=== PATIENT | male | born 1985 | race Two or more races ===

== ENCOUNTER 2023-05-30 11:40 | Emergency (ER) | payer OTHER ==
[~2023-05-30] VITALS: Ht 177.8 cm; Wt 104.5 kg
[2023-05-30] MEDS ORDERED: HYDROcodone-ACET 5/325MG TAB PO ONE (14:30)
[2023-05-30] MEDS ORDERED: KETOROLAC TROMETH 60MG/2ML VIAL IM ONE (14:30)
[2023-05-30 14:35] VITALS: BP 125/86; PULSE 88; RESP 16; TEMP 98.1; O2SAT 98
[2023-05-30] MEDS ORDERED: TRAM50TA2 PO (15:58)
[2023-05-30] MEDS ORDERED: METH-1182 PO (15:58)
== END 2023-05-30 16:12 | disposition home or self-care (01) ==
LOC: ER 11:40 → EDBD 11:40 → ER 16:02
DX: S39.012A Strain of muscle, fascia and tendon of lower back, initial encounter (principal); Z79.899 Other long term (current) drug therapy; X50.1XXA Overexertion from prolonged static or awkward postures, initial encounter; Y93.89 Activity, other specified; Y92.89 Other specified places as the place of occurrence of the external cause; Y99.0 Civilian activity done for income or pay
CPT/HCPCS: 72100; 96372; 99283; J1885